=== PATIENT | female | born 1990 | race African-American/Black ===

== ENCOUNTER 2022-12-13 10:19 | Emergency (ER) | payer OTHER ==
[~2022-12-13] VITALS: Ht 157.5 cm; Wt 92.0 kg
[2022-12-13 10:25] VITALS: BP 141/90
[2022-12-13] MEDS ORDERED: ONDANSETRON 4MG ODT PO ONE (12:00)
[2022-12-13] MEDS ORDERED: MAGNESIUM/ALUMINUM HYDROXIDE/SIMETHICONE 30ML UDC PO STA (13:19)
[2022-12-13] MEDS ORDERED: OMEP20CA14 MT ×2 (13:44)
[2022-12-13] MEDS ORDERED: PROT40 MT (13:46)
== END 2022-12-13 13:58 | disposition home or self-care (01) ==
LOC: ER 10:19
DX: R10.13 Epigastric pain (principal); D64.9 Anemia, unspecified; Z87.19 Personal history of other diseases of the digestive system
CPT/HCPCS: 99283; Z7610